=== PATIENT | male | born 1990 | race Hispanic/Latino ===

== ENCOUNTER 2017-08-25 00:06 | Emergency (ER) | payer SELFPAY ==
[2017-08-25 00:11] VITALS: TEMP 98
--- NOTE | 2017-08-25 00:34 | ED PDOC ---
HPI: Psych/Substance Abuse Time Seen by Provider: 08/25/17 00:11 Chief Complaint (Nursing): Alcohol Ingestion Chief Complaint (Provider): Alcohol Ingestion ED Caveat: Intoxicated History Per: EMS History/Exam Limitations: intoxication Onset/Duration Of Symptoms: Other (prior to arrival) Current Symptoms Are (Timing): Still Present Additional Complaint(s): 27 y/o male brought in by EMS due to public intoxication. Patient is asleep in ED. PMD: Provider TBD Past Medical History Reviewed: Historical Data, Nursing Documentation, Vital Signs Vital Signs: Last Vital Signs Temp 98 F 08/25/17 00:08 Pulse 71 08/25/17 00:08 Resp 16 08/25/17 00:08 BP 126/71 08/25/17 00:08 Pulse Ox 98 08/25/17 00:08 - Family History Family History: States: Unknown Family Hx - Allergies Allergies/Adverse Reactions: Allergies Allergy/AdvReac Type Severity Reaction Status Date / Time No Known Allergies Allergy Verified 08/25/17 00:08 Review of Systems Review Of Systems: ROS cannot be obtained secondary to pt's inabilty to answer questions. Physical Exam - Reviewed Nursing Documentation Reviewed: Yes Vital Signs Reviewed: Yes - ECG O2 Sat by Pulse Oximetry: 98 (RA) Pulse Ox Interpretation: Normal Medical Decision Making Medical Decision Making: Time: 00:11 Initial Impression: 27 y/o male with alcohol intoxication Initial Plan: --Alcohol serum --Accucheck --Reevaluation Time: 05:18 Upon reevaluation, patient is A&Ox3, with steady gait and normal speech. Patient is stable for discharge home. Scribe Attestation: Documented by Davian Jameson, acting as a scribe for Jossue Hutton MD. Provider Scribe Attestation: All medical record entries made by the Scribe were at my direction and personally dictated by me. I have reviewed the chart and agree that the record accurately reflects my personal performance of the history, physical exam, medical decision making, and the department course for this patient. I have also personally directed, reviewed, and agree with the discharge instructions and disposition. Disposition - Clinical Impression Clinical Impression: Alcohol abuse with intoxication - Patient ED Disposition Is Patient to be Admitted: No Counseled Patient/Family Regarding: Studies Performed, Diagnosis - Disposition Disposition: Routine/Home Disposition Time: 05:18 Condition: STABLE Instructions: Effects of Alcohol on Your Health Forms: [facility] (Salvadorean)
[2017-08-25 05:27] VITALS: BP 110/55; PULSE 67; RESP 18; O2SAT 99
== END 2017-08-25 05:31 | disposition home or self-care (01) ==
LOC: H.ER 00:06
DX: F10.129 Alcohol abuse with intoxication, unspecified (principal)
CPT/HCPCS: 82948; 99283; G0480